=== PATIENT | female | born 1945 | race Caucasian/White ===

== ENCOUNTER 2016-10-03 07:08 | Day surgery (SDC) | payer MEDICARE, BC ==
[~2016-10-03 07:08] MED LIST: Cefuroxime 10 MG/ML SYRINGE EYERT SCH; Lidocaine 1% PF 2 ML SDV INJECT SCH; Pilocarpine 4% Ophth Soln 15 ML Bot EYERT SCH; Proparacaine 0.5% Ophth Soln 15 ML Bottle EYEBOTH SCH; Tetracaine 0.5% 2 ML Bottle EYERT SCH
[2016-10-03] MEDS: Polymyxin B/Trimethoprim 10 ML Bottle EYERT SCH ×3 (07:19→08:30)
[2016-10-03] MEDS: Brimonidine 0.2% Ophth Soln 5 ML Bottle EYERT SCH ×3 (07:24→08:29)
[2016-10-03] MEDS: Phenylephrine 2.5% Ophth Soln 2 ML Bot EYERT SCH ×5 (07:27→08:14)
--- NOTE | 2016-10-03 07:46 | PCM.PREANE ---
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 now) Family History of Anesthesia Reaction: No - Review of Systems General: No Symptoms Pulmonary: No Symptoms Cardiovascular: No Symptoms Gastrointestinal: No symptoms Neurological: No Symptoms Other: Reports: Diabetes - Physical Assessment NPO Status Date: 10/02/16 NPO Status Time: 21:00 O2 Sat by Pulse Oximetry: 94 Respiratory Rate: 16 Vital Signs: Last Vital Signs Temp 36.4 C 10/03/16 07:15 Pulse 65 10/03/16 07:15 Resp 16 10/03/16 07:15 BP 120/66 10/03/16 07:15 Pulse Ox 94 L 10/03/16 07:15 Height: 1.52 m Weight: 76.204 kg ASA Class: 2 Mental Status: Alert & Oriented x3 Airway Class: Mallampati = 1 Dentition: Reports: Dentures Thyro-Mental Finger Breadths: 3 Mouth Opening Finger Breadths: 3 ROM/Head Extension: Full Lungs: Clear to auscultation, Normal respiratory effort Cardiovascular: Regular Rate, Regular Rhythm - Allergies Allergies/Adverse Reactions: Allergies Allergy/AdvReac Type Severity Reaction Status Date / Time ibuprofen Allergy Cannot Verified 10/02/16 12:53 Remember lisinopril Allergy Cannot Verified 10/02/16 12:53 Remember - Anesthesia Plan Beta Luis E: Metoprolol Med Last Dose Date: 10/03/16 Med Last Dose Time: 07:15 - Acknowledgements Anesthesia Type Planned: MAC Pt an Appropriate Candidate for the Planned Anesthesia: Yes Alternatives and Risks of Anesthesia Discussed w Pt/Guardian: Yes Pt/Guardian Understands and Agrees with Anesthesia Plan: Yes PreAnesthesia Questionnaire HEENT History: Reports: None Cardiovascular History: Reports: Hypertension, Other (see below) (pt states had sudden cardiac arrest 6-12, AICD-pacemaker, no heart damage, had issues with dusty tachy for years, no problems since) Respiratory History: Reports: None Gastrointestinal History: Reports: None Genitourinary History: Reports: None Musculoskeletal History: Reports: None Neurological History: Reports: None Psychiatric History: Reports: None Endocrine/Metabolic History: Reports: Diabetes, type II Hematologic History: Reports: None Immunologic History: Reports: None Oncologic (Cancer) History: Reports: None Dermatologic History: Reports: None - Infectious Disease History Infectious Disease History: Reports: None - Past Surgical History Head Surgeries/Procedures: Reports: None HEENT Surgical History: Reports: None, Tonsillectomy Cardiovascular Surgical History: Reports: Pacer, Other (see below) (AICD) Respiratory Surgical History: Reports: None GI Surgical History: Reports: None Female Surgical History: Reports: section, Hysterectomy Male Surgical History: Reports: None Endocrine Surgical History: Reports: None Neurological Surgical History: Reports: None Musculoskeletal Surgical History: Reports: Shoulder surgery, Other (see below) ( (B) foot) Oncologic Surgical History: Reports: None Dermatological Surgical History: Reports: None - SUBSTANCE USE Smoking Status *Q: Never Smoker - HOME MEDS Home Medications: Home Meds Aspirin [Halfprin] 81 mg PO DAILY 10/02/16 [History] Calcium Carbonate [Calcium] 500 mg PO DAILY 10/02/16 [History] Cholecalciferol (Vitamin D3) [Vitamin D3] 400 unit PO DAILY 10/02/16 [History] Glimepiride [Amaryl] 2 mg PO DAILY 10/02/16 [History] Lactobacillus Acidophilus [Probiotic] 1 cap PO DAILY 10/02/16 [History] Losartan [Cozaar] 25 mg PO DAILY 10/02/16 [History] Lutein/Minerals/Vit A,C & E [Ocuvite] 1 tab PO DAILY 10/02/16 [History] Metoprolol Succinate [Toprol Xl] 50 mg PO DAILY 10/02/16 [History] - CURRENT (IN HOUSE) MEDS Current Meds: Current Medications Brimonidine Tartrate (Alphagan 0.2% Ophth Soln) 0 ml EYERT ASDIRECTED TIN Stop: 10/03/16 18:00 Last Admin: 10/03/16 07:24 Dose: 1 drop Cefuroxime Sodium (Zinacef) 0 mg EYERT ASDIRECTED TIN Stop: 10/03/16 18:00 Lidocaine HCl (Xylocaine-Mpf 1%) 1 ml INJECT ASDIRECTED TIN Stop: 10/03/16 18:00 Phenylephrine HCl (Trevor-Synephrine 2.5% Ophth Soln) 0 ml EYERT ASDIRECTED TIN Stop: 10/03/16 18:00 Last Admin: 10/03/16 07:35 Dose: 1 drop Pilocarpine HCl (Pilocar 4% Ophth Soln) 0 ml EYERT ASDIRECTED TIN Stop: 10/03/16 18:00 Polymyxin/Trimethoprim Sulfate (Polytrim Ophth Soln) 0 ml EYERT ASDIRECTED TIN Stop: 10/03/16 18:00 Last Admin: 10/03/16 07:19 Dose: 1 drop Proparacaine HCl (Proparacaine 0.5% Ophth Soln) 0 ml EYEBOTH ASDIRECTED TIN Stop: 10/03/16 18:00 Tetracaine (Pontocaine 0.5% Ophth Drops) 0 ml EYERT ASDIRECTED TIN Stop: 10/03/16 18:00 Tropicamide (Mydriacyl 1% Ophth Soln) 0 ml EYERT ASDIRECTED TIN Stop: 10/03/16 18:00 Last Admin: 10/03/16 07:39 Dose: 1 drop
--- NOTE | 2016-10-03 08:36 | PCM48HPAN ---
Post Anesthesia Note - EVALUATION WITHIN 48HRS OF ANESTHETIC Vital Signs in Normal Range: Yes Patient Participated in Evaluation: Yes Respiratory Function Stable: Yes Airway Patent: Yes Cardiovascular Function Stable: Yes Hydration Status Stable: Yes Pain Control Satisfactory: Yes Nausea and Vomiting Control Satisfactory: Yes Mental Status Recovered: Yes
[2016-10-03 09:02] VITALS: BP 108/68
== END 2016-10-03 08:45 | disposition home or self-care (01) ==
LOC: JD.SDS 07:08
PROVIDERS: ATTEND Ophthalmology
PROC: 08RJ3JZ Replacement of Right Lens with Synthetic Substitute, Percutaneous Approach (ICD-10-PCS; principal; 2016-10-03)
DX: H25.811 Combined forms of age-related cataract, right eye (principal); H35.371 Puckering of macula, right eye; H43.813 Vitreous degeneration, bilateral; H02.831 Dermatochalasis of right upper eyelid; H02.834 Dermatochalasis of left upper eyelid; E11.9 Type 2 diabetes mellitus without complications; I48.91 Unspecified atrial fibrillation; I10 Essential (primary) hypertension; Z87.891 Personal history of nicotine dependence; Z95.0 Presence of cardiac pacemaker; Z90.710 Acquired absence of both cervix and uterus; Z98.890 Other specified postprocedural states; Z79.82 Long term (current) use of aspirin; Z79.84 Long term (current) use of oral hypoglycemic drugs; Z79.899 Other long term (current) drug therapy; Z88.6 Allergy status to analgesic agent; Z88.8 Allergy status to other drugs, medicaments and biological substances
CPT/HCPCS: 66984; A9270; J0697; C1780

== ENCOUNTER 2016-10-31 07:41 | Day surgery (SDC) | payer MEDICARE, BC ==
[~2016-10-31 07:41] MED LIST changes: +Cefuroxime 10 MG/ML SYRINGE EYELF SCH; -Cefuroxime 10 MG/ML SYRINGE EYERT SCH; +Pilocarpine 4% Ophth Soln 15 ML Bot EYELF SCH; -Pilocarpine 4% Ophth Soln 15 ML Bot EYERT SCH; -Proparacaine 0.5% Ophth Soln 15 ML Bottle EYEBOTH SCH; -Tetracaine 0.5% 2 ML Bottle EYERT SCH
[2016-10-31] MEDS: Polymyxin B/Trimethoprim 10 ML Bottle EYELF SCH ×3 (07:51→09:26)
[2016-10-31] MEDS: Brimonidine 0.2% Ophth Soln 5 ML Bottle EYELF SCH ×3 (07:56→09:26)
--- NOTE | 2016-10-31 07:57 | PCM.PREANE ---
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 now) Family History of Anesthesia Reaction: No - Review of Systems General: No Symptoms Pulmonary: No Symptoms Cardiovascular: No Symptoms, Chest Pain (on rare occasion), Other (pacemaker, AICD) Gastrointestinal: No symptoms Neurological: No Symptoms Other: Reports: Diabetes - Physical Assessment NPO Status Date: 10/30/16 NPO Status Time: 20:30 Pulse: 70 O2 Sat by Pulse Oximetry: 95 Respiratory Rate: 16 Blood Pressure: 121/67 Height: 1.52 m Weight: 77.111 kg ASA Class: 2 Mental Status: Alert & Oriented x3 Airway Class: Mallampati = 2 Dentition: Reports: Normal Dentition, Partial (upper) Thyro-Mental Finger Breadths: 3 Mouth Opening Finger Breadths: 3 Lungs: Clear to auscultation, Normal respiratory effort Cardiovascular: Regular Rate, Regular Rhythm - Allergies Allergies/Adverse Reactions: Allergies Allergy/AdvReac Type Severity Reaction Status Date / Time ibuprofen Allergy Cannot Verified 10/02/16 12:53 Remember lisinopril Allergy Cannot Verified 10/02/16 12:53 Remember - Blood Blood Available: No Product(s) Available: None - Anesthesia Plan Beta Luis E: Metoprolol Med Last Dose Date: 10/31/16 Med Last Dose Time: 06:30 - Acknowledgements Anesthesia Type Planned: MAC Pt an Appropriate Candidate for the Planned Anesthesia: Yes Alternatives and Risks of Anesthesia Discussed w Pt/Guardian: Yes Pt/Guardian Understands and Agrees with Anesthesia Plan: Yes PreAnesthesia Questionnaire HEENT History: Reports: None Cardiovascular History: Reports: Hypertension, Other (See Below) (pt states had sudden cardiac arrest 6-12, AICD-pacemaker, no heart damage, had issues with dusty tachy for years, no problems since) Respiratory History: Reports: None Gastrointestinal History: Reports: None Genitourinary History: Reports: None Musculoskeletal History: Reports: None Neurological History: Reports: None Psychiatric History: Reports: None Endocrine/Metabolic History: Reports: Diabetes, Type II Hematologic History: Reports: None Immunologic History: Reports: None Oncologic (Cancer) History: Reports: None Dermatologic History: Reports: None - Infectious Disease History Infectious Disease History: Reports: None - Past Surgical History Head Surgeries/Procedures: Reports: None HEENT Surgical History: Reports: None, Tonsillectomy Cardiovascular Surgical History: Reports: Pacer, Other (See Below) (AICD) Respiratory Surgical History: Reports: None GI Surgical History: Reports: None Female Surgical History: Reports: Section, Hysterectomy Male Surgical History: Reports: None Endocrine Surgical History: Reports: None Neurological Surgical History: Reports: None Musculoskeletal Surgical History: Reports: Shoulder Surgery, Other (See Below) ( (B) foot) Oncologic Surgical History: Reports: None Dermatological Surgical History: Reports: None - SUBSTANCE USE Smoking Status *Q: Never Smoker - HOME MEDS Home Medications: Home Meds Aspirin [Halfprin] 81 mg PO DAILY 10/02/16 [History] Calcium Carbonate [Calcium] 500 mg PO DAILY 10/02/16 [History] Cholecalciferol (Vitamin D3) [Vitamin D3] 400 unit PO DAILY 10/02/16 [History] Glimepiride [Amaryl] 2 mg PO DAILY 10/02/16 [History] Lactobacillus Acidophilus [Probiotic] 1 cap PO DAILY 10/02/16 [History] Losartan [Cozaar] 25 mg PO DAILY 10/02/16 [History] Lutein/Minerals/Vit A,C & E [Ocuvite] 1 tab PO DAILY 10/02/16 [History] Metoprolol Succinate [Toprol Xl] 50 mg PO DAILY 10/02/16 [History] - CURRENT (IN HOUSE) MEDS Current Meds: Current Medications Brimonidine Tartrate (Alphagan 0.2% Ophth Soln) 0 ml EYELF ASDIRECTED TIN Stop: 10/31/16 18:00 Cefuroxime Sodium (Zinacef) 0 mg EYELF ASDIRECTED TIN Stop: 10/31/16 18:00 Lidocaine HCl (Xylocaine-Mpf 1%) 1 ml INJECT ASDIRECTED TIN Stop: 10/31/16 18:00 Phenylephrine HCl (Trevor-Synephrine 2.5% Ophth Soln) 0 ml EYELF ASDIRECTED TIN Stop: 10/31/16 18:00 Pilocarpine HCl (Pilocar 4% Ophth Soln) 0 ml EYELF ASDIRECTED TIN Stop: 10/31/16 18:00 Polymyxin/Trimethoprim Sulfate (Polytrim Ophth Soln) 0 ml EYELF ASDIRECTED TIN Stop: 10/31/16 18:00 Tetracaine (Pontocaine 0.5% Ophth Drops) 0 ml EYELF ASDIRECTED TIN Stop: 10/31/16 18:00 Tropicamide (Mydriacyl 1% Ophth Soln) 0 ml EYELF ASDIRECTED TIN Stop: 10/31/16 18:00
[2016-10-31] MEDS: Phenylephrine 2.5% Ophth Soln 2 ML Bot EYELF SCH ×5 (08:01→09:03)
[2016-10-31] MEDS: Tetracaine 0.5% 2 ML Bottle EYELF SCH ×4 (08:55→09:15)
[2016-10-31 09:47] VITALS: BP 120/72
== END 2016-10-31 09:45 | disposition home or self-care (01) ==
LOC: JD.SDS 07:41
PROVIDERS: ATTEND Ophthalmology
DX: H25.812 Combined forms of age-related cataract, left eye (principal); I48.91 Unspecified atrial fibrillation; E11.9 Type 2 diabetes mellitus without complications; Z95.810 Presence of automatic (implantable) cardiac defibrillator; Z88.8 Allergy status to other drugs, medicaments and biological substances; Z88.6 Allergy status to analgesic agent; Z98.890 Other specified postprocedural states; Z79.82 Long term (current) use of aspirin; Z79.899 Other long term (current) drug therapy
CPT/HCPCS: 66984; A9270; J0697; C1780

== ENCOUNTER 2022-07-30 13:25 | Emergency (ER) | payer MEDICARE, BC ==
[2022-07-30 14:00] VITALS: BP 139/65; PULSE 70
== END 2022-07-30 14:37 | disposition home or self-care (01) ==
LOC: JD.ED 13:25
DX: B02.39 Other herpes zoster eye disease (principal); I10 Essential (primary) hypertension; E11.9 Type 2 diabetes mellitus without complications; Z88.8 Allergy status to other drugs, medicaments and biological substances; Z79.82 Long term (current) use of aspirin; Z79.899 Other long term (current) drug therapy
CPT/HCPCS: 99283

== ENCOUNTER 2023-11-01 22:48 | Emergency (ER) | payer MEDICARE, BC ==
[2023-11-01 23:10] VITALS: BP 112/70; PULSE 80
[2023-11-02 00:14] LABS: BASOPHILS ABSOLUTE AUTO 0.1 K/mm3 (0.0-0.2); BASOPHILS PERCENT AUTO 0.5 % (0.0-1.0); EOSINOPHILS PERCENT AUTO 0.2 % (0.0-6.0); HEMATOCRIT 44.4 % (37.0-47.0); HEMOGLOBIN 14.6 gm/dl (12.0-16.0); IMMATURE GRAN ABSOLUTE AUTO 0.11 K/mm3 (0.00-0.05); LYMPHOCYTES ABSOLUTE AUTO 1.1 K/mm3 (1.0-4.8); LYMPHOCYTES PERCENT AUTO 9.6 % (24.0-44.0); MEAN CORPUSCULAR HEMOGLOBIN 30.5 pg (28.0-32.0); MEAN CORPUSCULAR HGB CONC 32.9 g/dl (32.0-36.0); MEAN CORPUSCULAR VOLUME 92.7 fl (83.0-99.0); MEAN PLATELET VOLUME 9.6 fl (9.4-12.3); MONOCYTES ABSOLUTE AUTO 0.9 K/mm3 (0.0-0.8); MONOCYTES PERCENT AUTO 8.1 % (0.0-8.0); NEUTROPHILS ABSOLUTE AUTO 8.9 K/mm3 (1.8-7.7); NEUTROPHILS PERCENT AUTO 80.6 % (41.0-71.0); PLATELET COUNT,PLT 231 K/mm3 (150-400); RED BLOOD CELL COUNT 4.79 M/mm3 (4.10-5.30); WHITE BLOOD CELL COUNT,WBC 11.09 K/mm3 (3.9-11.3)
[2023-11-02 00:35] LABS: A/G RATIO 0.8 (1-2); ALBUMIN 3.2 g/dl (3.4-5.0); ANION GAP 14.9 (5-15); BILIRUBIN TOTAL 0.7 mg/dL (0.2-1.0); BUN/CREATININE RATIO 15.6 (14-18); CREATININE 0.9 mg/dL (0.55-1.02); EST CRCL DRUG DOSING (CG) 35.81 mL/min; POTASSIUM,K 3.9 mEq/L (3.5-5.1)
== END 2023-11-02 04:20 | disposition home or self-care (01) ==
LOC: JD.ED 22:48
DX: E11.649 Type 2 diabetes mellitus with hypoglycemia without coma (principal); I10 Essential (primary) hypertension; Z86.19 Personal history of other infectious and parasitic diseases; Z79.82 Long term (current) use of aspirin; Z79.899 Other long term (current) drug therapy; Z79.84 Long term (current) use of oral hypoglycemic drugs; Z88.8 Allergy status to other drugs, medicaments and biological substances
CPT/HCPCS: 36415; 80053; 82947; 84484; 85025; 93005; 93010; 99284; 99285

== ENCOUNTER 2025-05-17 14:11 | Emergency (ER) | payer MEDICARE, BC ==
[2025-05-17 16:36] VITALS: BP 150/74; PULSE 60
== END 2025-05-17 16:28 | disposition home or self-care (01) ==
LOC: JD.ED 14:11
DX: S39.012A Strain of muscle, fascia and tendon of lower back, initial encounter (principal); I10 Essential (primary) hypertension; E11.9 Type 2 diabetes mellitus without complications; Z88.8 Allergy status to other drugs, medicaments and biological substances; Z79.82 Long term (current) use of aspirin; Z79.899 Other long term (current) drug therapy; X58.XXXA Exposure to other specified factors, initial encounter; Y93.89 Activity, other specified
CPT/HCPCS: 72131; 72131-26; 99283